=== PATIENT | female | born 1935 | race Caucasian/White ===

== ENCOUNTER 2020-09-16 17:48 | Emergency (ER) | payer MEDICARE, SELFPAY ==
--- NOTE | ~2020-09-16 | XR_ITS ---
XR wrist LT min 3V 09/16/2020 18:50 Indication: Left wrist pain after fall Procedure: 3 views left wrist Comparison: No prior studies for comparison. Findings: There is a comminuted impaction intra-articular fracture distal aspect of the radius with a pproximately 2 mm dorsal displacement and mild dorsal angulation. There is a distal ulnar metaphyseal fracture. There is an additional ulnar styloid avulsion fracture. Osteopenia. 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 No definite scaph oid fracture. Impression: 1: Comminuted, intra-articular impaction fracture of the distal aspect of the radius with dorsal disp lacement and angulation. 2: Nondisplaced extra-articular distal ulnar metaphyseal fracture. Ulnar styloid avulsion fracture. Reviewed, dictated and finalized at location A. EAR EQUIPMENT RESEARCH ENGINEER Impression: 1: Comminuted, intra-articular impaction fracture of the distal aspect of the r adius with dorsal displacement and angulation. 2: Nondisplaced extra-articular distal ulnar metaphyseal fracture. Ulnar styloi d avulsion fracture.
--- NOTE | ~2020-09-16 | XR_ITS ---
XR elbow LT min 3V 09/16/2020 18:50 INDICATION: Left elbow pain PROCEDURE: 3 views left elbow COMPARISON: No prior studies for comparison. FINDINGS: Fracture, dislocation or subluxation is not identified. Small osteophyte originating from t he radial head. No significant joint effusion. Osteopenia. The soft tissues appear within normal limi ts. No foreign bodies are identified. IMPRESSION: 1: NO ACUTE BONE OR JOINT ABNORMALITY IDENTIFIED. Reviewed, dictated and finalized at location A. HOSTLER
--- NOTE | ~2020-09-16 | CT_ITS ---
EXAMINATION: CT cervical spine wo con DATE: 09/16/2020 20:01 INDICATION: Status post fall. Head injury. TECHNIQUE: Computed tomography (CT) of the cervical spine was performed without intravenous contrast. The dose-length product was 140 mGy-cm. Automated exposure control and iterative reconstruction tech nique were employed. COMPARISON: None FINDINGS: Normal cervical alignment. Odontoid process within normal limits. Mild levoscoliosis. Verte bral body heights are maintained. There is moderate multilevel facet and uncinate hypertrophy. There is apical pleural thickening/scarring. There is carotid atherosclerosis. No significant paraspinal so ft tissue abnormality. Craniovertebral junction is normal. No evidence for perched facet. Disc narrow ing present at C6-7. IMPRESSION: 1. No acute abnormality of the cervical spine. Reviewed, dictated and finalized at location A. AGING LINE OPERATOR
--- NOTE | ~2020-09-16 | CT_ITS ---
EXAMINATION: CT brain wo con DATE: 09/16/2020 20:01 INDICATION: Status post fall. Head injury. TECHNIQUE: Computed tomography (CT) of the head was performed without intravenous contrast. The dose- length product was 605.33 mGy-cm. The mA was adjusted according to patient size. Iterative reconstruc tion technique was employed. COMPARISON: None FINDINGS: Generalized atrophy. There are scattered severe periventricular and subcortical white matte r changes, most likely related to small vessel ischemic disease (microangiopathy). There is intracran ial atherosclerosis. Study limited by motion artifact. Mild mucosal thickening of the maxillary and e thmoid sinuses. Mastoids are pneumatized. No depressed skull fractures. No acute intracranial hemorrh age, infarction, mass or mass effect. No depressed skull fractures. IMPRESSION: 1. No acute intracranial abnormality. 2: Chronic age-related findings. Reviewed, dictated and finalized at location A. ELING RAMP SUPERVISOR
[2020-09-16 17:52] VITALS: BP 156/76; PULSE 88; RESP 18; TEMP 36.4; O2SAT 99
--- NOTE | 2020-09-16 18:43 | PC.NURSE ---
pt unable to tolerate ice on wounds
[2020-09-16 19:00] VITALS: BP 137/88; PULSE 87; RESP 16; TEMP 36.6; O2SAT 95
[2020-09-16] MEDS: HYDROcodone/acetaminophen (*CRX) 5-325 MG TABLET 1 TAB PO (19:33)
[2020-09-16] MEDS: TETANUS,DIPHTHERIA,AC PERTUSSIS ADULT (0.5 ML) BOOSTRIX IM (19:34)
--- NOTE | 2020-09-16 19:44 | PC.NURSE ---
Patient used bedpan and was cleaned after use. Pain medication was provided. Patient to CT at this time. Will place splint after patient returns from CT. Patient's was provided with an update
[2020-09-16 19:59] VITALS: BP 143/83; PULSE 88; RESP 18; O2SAT 94
--- NOTE | 2020-09-16 20:39 | ED.UPPEXIN ---
HPI - Extremity Injury (Upper) General Chief Complaint: Extremity Injury, Upper Stated Complaint: fall, ?left arm pain Time Seen by Provider: 09/16/20 18:23 Source: patient and family Mode of arrival: ambulatory Limitations: no limitations History of Present Illness HPI narrative: 85-year-old female Patient has a little trouble walking usually and her typically assists her However tonight they were leaving to talk to some neighbors and he was carrying something so she was walking behind him and stumbled and fell This was a mechanical fall, she did not complain of any weakness dizziness syncope etc. which precipitated it She injured her left wrist and scraped her left elbow She might of bumped her head she has a little soreness but there is no abrasion or swelling, she did not lose consciousness, her neck does not hurt Other than that no injuries elsewhere Related Data Allergies Allergy/AdvReac Type Severity Reaction Status Date / Time No Known Allergies Allergy Verified 09/16/20 17:58 Review of Systems Review of Systems: All systems reviewed & are unremarkable except as noted in HPI and below Constitutional: Constitutional: Denies fever(s), Denies headache(s) and Reports weakness Eyes: Eyes: Reports no additional eye complaints and Denies change in vision ENT: Denies headache(s) and Denies epistaxis Cardiovascular: Cardiovascular: Denies chest pain, Denies leg edema, Denies palpitations and Denies dyspnea Respiratory: Respiratory: Denies cough and Denies dyspnea Gastrointestinal: Gastrointestinal: Denies nausea and Denies vomiting Genitourinary: Genitourinary: Denies hematuria and Denies urinary frequency Musculoskeletal: Musculoskeletal: Denies back pain, Denies deformity, Reports arthralgias, Reports joint swelling, Denies muscle weakness and Denies numbness Integumentary/Breasts: Skin/Breast: Denies rash and Denies wounds Neurologic: Denies headache(s), Denies numbness and Denies weakness Psychiatric: Psychiatric: Reports no additional psychiatric complaints Endocrine: Endocrine: Denies palpitations Hematologic/Lymphatic: Hematologic/Lymphatic: Denies easy bleeding PMFSH Social History Social History Gender identity (if verbalized by the patient): Female Exam Const: General: no acute distress, well developed, alert and awake Nutritional Appearance: thin Other: Elderly and frail-appearing HENMT: Head: normocephalic, atraumatic, no contusions, no hematomas and no lacerations Ears: external ears normal General nose exam: Normal external nose present, No nasal discharge present and no epistaxis Face and sinus: sinuses nontender and face symmetric Eyes: Conjunctivae: conjunctivae normal Sclera: sclerae normal EOM: EOMs intact bilaterally Neck: Neck: normal visual inspection, supple and no JVD Other: No tenderness and no pain with movement Chest: Chest palpation & inspection: normal inspection of the chest, deferred and no tenderness Resp: Effort & Inspection: normal respiratory effort and not labored Auscultation: clear to auscultation bilaterally and other (BS =) Cardio: Rate: regular rate Rhythm: regular rhythm Heart sounds: no gallops GI: Inspection: normal to inspection and non-distended GI Palp: Yes Soft to palpation and No Tenderness to palpation present (GI) Other: Nontender pelvis Back/Spine/Pelvis: Thoracic/Lumbar Spine: thoracic and lumbar spine normal to inspection Skin: General skin exam: normal color and no rashes or lesions noted Neuro: General: moves all extremities and no focal motor deficits Cranial nerves: Yes facial symmetry Speech: normal speech Extrem: General: full ROM Other: There is swelling and tenderness to the left distal radius Pulses movement and sensation distally are all intact There is a superficial skin tear at the left elbow Elbow has full range of motion in flexion and extension and supination and pronation Psych: Attitude: coope
[2020-09-16 20:45] VITALS: BP 129/103; PULSE 89; RESP 20; TEMP 36.6; O2SAT 97
[2020-09-16 21:20] VITALS: BP 135/89; PULSE 91; RESP 18; TEMP 36.5; O2SAT 97
== END 2020-09-16 21:22 | disposition home or self-care (01) ==
PROVIDERS: Emergency Provider Emergency Medicine
DX: S52.572A Other intraarticular fracture of lower end of left radius, initial encounter for closed fracture (principal); S59.092A Other physeal fracture of lower end of ulna, left arm, initial encounter for closed fracture; S52.612A Displaced fracture of left ulna styloid process, initial encounter for closed fracture; Z23 Encounter for immunization; W01.0XXA Fall on same level from slipping, tripping and stumbling without subsequent striking against object, initial encounter
CPT/HCPCS: 29125; 70450; 72125; 73080; 73110; 90471; 90715; 99284; A4565; A9270